=== PATIENT | male | born 1950 | race Two or more races ===

== ENCOUNTER 2016-11-23 12:29 | Emergency (ER) | payer MEDICAID, OTHER ==
[~2016-11-23] VITALS: Wt 90.0 kg
[~2016-11-23 12:29] MED LIST: BACTDS PO; CEPH500C PO; IBUP-1542 PO; LOSA25TA5 PO; METF500T4 PO; SULF1TAB31 PO
--- NOTE | 2016-11-23 16:06 | ERD ---
DATE OF SERVICE: 11/23/2016 HISTORY OF PRESENT ILLNESS: The patient is a 66-year-old male complaining of left foot pain. The p atient states that he had a history of diabetic foot ulcers in the past and family was concerned abo ut a possible new diabetic foot ulcer. He is diabetic, he is non-insulin. He has noticed changes i n skin over the last week. He has had no fevers. No bleeding. No trauma. Denies any numbness or tingling. No purulence. PAST MEDICAL HISTORY: Diabetes [id number] and high blood pressure. ALLERGIES TO MEDICATIONS: DENIES. PAST SURGICAL HISTORY: Denies. SOCIAL HISTORY: Denies. REVIEW OF SYSTEMS: A 12-point review of systems was done. Refer to HPI for positives, all other sy stems negative. PHYSICAL EXAMINATION VITAL SIGNS: Temperature is 98.5, pulse 71, blood pressure is 168/81, respiratory rate 21, O2 satur ation 97% on room air. Pain intensity is 0/10. GENERAL: The patient is well-appearing, well-nourished, no acute distress. CHEST: Clear to auscultation bilaterally. There are no rales, wheezes or rhonchi. HEART: Regular rate and rhythm. No murmurs, clicks, rubs or gallops. No S3 or S4. EXTREMITIES: Equal pulses bilaterally. There is no peripheral clubbing, cyanosis or edema. No focal swelling or erythema. Full range of motion. Grossly neurovascularly intact. The patient has a larg e bunion noted of the left great toe. SKIN: There is no apparent rash or petechia. The skin is warm and dry. The patient has corns noted on the distal left great toe with no deroofing, no surrounding erythema, no purulence. DIAGNOSIS: Callus and corn. MEDICAL DECISION MAKING: I do not feel that there was concern for diabetic foot ulcer. There are n o open lesions, no purulence, no erythema. The patient's skin changes corn and does not requi re surgical removal at this time. DISCHARGE: The patient is discharged stable. The patient is told to follow up with primary doctor and babysitter and told to return if symptoms change or worsen. The patient is also given instructi ons to wear open-toe shoes to help prevent rubbing of the shoes. All other questions answered at ti me of discharge. Discharge summary given at the time of departure. The patient understood and comp lied with plan. Dictated By: PURA OWENS for KIT TAYLOR/ROBIN Conf#: [id number] DID#: [id number]
== END 2016-11-23 14:38 | disposition home or self-care (01) ==
LOC: FTE 12:29
DX: L84 Corns and callosities (principal); E11.9 Type 2 diabetes mellitus without complications; I10 Essential (primary) hypertension
CPT/HCPCS: 99282